=== PATIENT | male | born 2000 | race Hispanic/Latino ===

== ENCOUNTER 2022-01-20 09:56 | Emergency (ER) | payer OTHER ==
[~2022-01-20] VITALS: Ht 182.9 cm; Wt 65.0 kg
[~2022-01-20 09:56] MED LIST: ADDERALL5 MG PO; AMOXIL400 MG/5 M PO; CLONIDINE HCL0.1 MG PO; CLONIDINE0.1 MG; CLONIDINE0.1 MG PO; CLONIDINE0.2 MG PO; HYDROCORT2.52 TOP; MUPIROCIN2 % TOP; TET/DIP TOX1 ML IM; TRIAMCINOLON0.0252 TOP; VYVANSE30 MG PO; VYVANSE40 MG; VYVANSE40 MG PO; VYVANSE50 MG OR; VYVANSE50 MG PO; VYVANSE60 MG PO; VYVANSE70 MG PO; melatonin
[2022-01-20 10:00] VITALS: BP 123/62
[2022-01-20 10:15] VITALS: BP 112/62
[2022-01-20 10:46] VITALS: BP 108/72
[2022-01-20 11:04] VITALS: BP 108/72
== END 2022-01-20 11:10 | disposition home or self-care (01) ==
LOC: ED 09:56
DX: M25.532 Pain in left wrist (principal); V00.131A Fall from skateboard, initial encounter; Y93.51 Activity, roller skating (inline) and skateboarding